=== PATIENT | female | born 1965 ===

== ENCOUNTER → 2017-06-13 | Outpatient (CLI) | payer OTHER | LOC: CIMAGING 07:46 → MERGE 07:46 | PROVIDERS: ATTEND Family Medicine | DX: Z12.31 Encounter for screening mammogram for malignant neoplasm of breast (principal); Z80.3 Family history of malignant neoplasm of breast ==

== ENCOUNTER → 2017-07-23 | Outpatient (CLI) | payer OTHER | LOC: CIMAGING 13:58 | PROVIDERS: ATTEND Family Medicine | DX: R07.89 Other chest pain (principal); B34.9 Viral infection, unspecified | CPT/HCPCS: 71046-PO ==